=== PATIENT | male | born 1960 | race Caucasian/White ===

== ENCOUNTER 2017-07-14 16:48 | Emergency (ER) | payer SELFPAY ==
[~2017-07-14] VITALS: Ht 182.9 cm; Wt 99.0 kg
[~2017-07-14 16:48] MED LIST: IBUP-1277 PO
[2017-07-14 16:55] VITALS: TEMP 36.8; Ht 182.9 cm; Wt 99.0 kg
[2017-07-14] MEDS ORDERED: XYLOCAINE 1%/SOD BICARB 20 ML VIAL INFIL ONE (17:07)
--- NOTE | 2017-07-14 17:47 | DIAGNOSTIC IMAGING REPORT ---
MANDIBLE MIN 4 VIEWS ROUTINE CLINICAL HISTORY: L JAW PAIN AFTER A FALL trauma. Pain. COMPARISON STUDY: None FINDINGS: Soft tissue disruption and/or laceration over the left mandibular angle. No evidence for acute bony pathology. Cortical margins are intact. The mandibular condyles show no evidence for disruption. IMPRESSION: 1. Soft tissue disruption over the left mandibular angle. 2. No acute bony abnormality. The above report was generated using voice recognition software. It may contain grammatical, syntax or spelling errors. Electronically signed by: Tristan To M.D. 07/14/2017 5:46 PM Dictated Date/Time: 07/14/2017 5:45 PM
[2017-07-14] MEDS ORDERED: ASPI325T45 PO (18:05)
[2017-07-14] MEDS ORDERED: CEPHALEXIN 500MG HOME PACK 1 EA BTL PO ONE (18:45)
[2017-07-14] MEDS ORDERED: CEPH500C2 PO (18:47)
--- NOTE | 2017-07-14 18:48 | EMERGENCY ROOM VISIT NOTE ---
ED Visit Note First contact with patient: 17:00 CHIEF COMPLAINT: Chin laceration 16 hours ago HISTORY OF PRESENT INJURY: Patient is a 56-year-old white male who presents emergency department for evaluation of a chin laceration. He states that around midnight or 1:00 in the morning, he was carrying some items and tripped going up a set of concrete steps. He was unable to brace himself and struck his chin on the step, causing the laceration described below. He had some bleeding from the left nostril which stopped shortly thereafter. He notes that he cracked to right sided teeth as well. He complains of pain in the left side of the jaw and some swelling in the left cheek in addition to the laceration. He cleansed the area with soap and water. He applied bandages, then states that he had to work today and now presents the emergency department for wound repair. He believes that his tetanus is current. He denies any headache, lightheadedness or dizziness. No neck pain. REVIEW OF SYSTEMS: Review of systems as per HPI. All other systems reviewed were negative. 10 systems reviewed. PMH: Electronic medical records are reviewed and summarized as above/below. See Problem List. Patient believes his last tetanus was in 2008. SOCIAL HISTORY: Patient lives at home with his family. PHYSICAL EXAM: Vital Signs: Reviewed Nurse's notes. CONSTITUTIONAL: Patient is a well-appearing 56-year-old white male who is awake and alert and in no acute distress. HEENT: Head - normocephalic and atraumatic. Pupils are equal, round, and reactive to light. Extraocular eye muscles are intact and sclera are anicteric. Ears - bilaterally patent canals with no evidence of hemotympanum. Nose - moist nasal mucosa without evidence of trauma or discharge. Mouth - moist buccal mucosa with no signs of malocclusion. Face: The patient has a 7 cm laceration on the underside of the chin, with mild soft tissue swelling. Scant oozing is noted. He has some swelling in the left mid mandible region and is tender there and not the left TMJ. The jaw does open and close fully. No other facial bony tenderness is appreciated. Neck: The neck is supple and there is no pain to palpation over the posterior cervical spine and no obvious step-offs or deformities. There is no JVD or tracheal deviation. EMERGENCY DEPARTMENT COURSE: Mandible x-rays were obtained and negative for acute bony injury. Delayed primary closure was discussed with the patient and given the size and location of the laceration it was felt necessary to perform repair. The affected area was cleaned thoroughly with Betadine and saline. 1% plain buffered lidocaine was used as a local anesthetic. The laceration was explored to its base. There was no foreign body in the wound. The subcutaneous layer was closed with several 5-0 Vicryl sutures, then the skin was closed with 13, 6- 0 nylon sutures. Wound care measures were discussed. The patient will be placed on Keflex given the delayed primary closure, and he was counseled at length regarding the signs and symptoms of infection for which he should seek immediate medical attention. Differential diagnoses include laceration, facial bony fracture, cervical strain, C-spine injury, among others. Medication reconciliation: I attest that I have personally reviewed the patient' s current medication list. Blood pressure screening: Patient was found to have a slightly elevated blood pressure due to circumstances. I do not believe that the patient requires hypertension monitoring. MANDIBLE MIN 4 VIEWS ROUTINE CLINICAL HISTORY: L JAW PAIN AFTER A FALL trauma. Pain. COMPARISON STUDY: None FINDINGS: Soft tissue disruption and/or laceration over the left mandibular angle. No evidence for acute bony pathology. Cortical margins are intact. The mandibular condyles show no evidence for disruption. IMPRESSION: 1. Soft tissue disruption over the left mandibular angle. 2. No acute bony abnormality. Current/Historical Medications Scheduled Cephalexin Monohydrate (Keflex), 500 MG PO TID Ibuprofen (Advil), 600 MG PO Q6HR PRN Scheduled PRN Aspirin (Aspirin), 975 MG PO Q8 PRN for Pain Allergies Coded Allergies: No Known Allergies (Unverified , 07/14/17) Vital Signs Date Time Temp Pulse Resp B/P (MAP) Pulse Ox O2 Delivery O2 Flow Rate FiO2 07/14/17 19:00 89 18 161/90 95 Room Air 07/14/17 16:55 36.8 88 18 164/128 96 Room Air Medications Administered Medications (Trade) Dose Ordered Sig/Saeid Route Start Time Stop Time Status Last Admin Dose Admin Cephalexin Monohydrate (Keflex 500MG Home Pack) 1 homepack NOW ONCE PO 07/14/17 18:45 07/14/17 18:46 DC 07/14/17 18:45 1 HOMEPACK Departure Information Impression Primary Impression: Chin laceration Prescriptions Cephalexin Monohydrate (KEFLEX) 500 Mg Cap 500 MG PO TID, #21 CAP Prov: Anna Ybarra PA 07/14/17 Referrals No Doctor, Assigned (PCP) Patient Instructions My [facility] Additional Instructions Keep wound clean and dry. Do not allow any crusting or dried blood to accumulate on sutures. Clean the area with mild soap and water. Use an antibiotic ointment for 3-4 days, then let wound dry. Suture removal in 7 days. Return sooner for any signs of infection (increasing redness, swelling, drainage). Ice and elevate for swelling and pain. Ibuprofen 600 mg and Tylenol 1000 mg every 6 hrs for pain. Cephalexin(Keflex) 500mg: Take one pill 3 times daily for 7 days to prevent infection. All antibiotics can cause diarrhea. If this occurs and you feel worse or it does not resolve in 1-2 days follow up with your doctor or return to the Emergency Department as this could be signs of serious underlying problems. Any medication can cause an allergic reaction, stop the pills immediately and return to the ER for rash, hives, breathing difficulties, or swelling. Problem Qualifiers Primary Impression: Chin laceration Encounter type: initial encounter Qualified Codes: S01.81XA - Laceration without foreign body of other part of head, initial encounter
[2017-07-14 19:00] VITALS: BP 161/90; PULSE 89; O2SAT 95
== END 2017-07-14 19:05 | disposition home or self-care (01) ==
LOC: C.EDB 16:49 → C.EDD 19:05
DX: S01.81XA Laceration without foreign body of other part of head, initial encounter (principal); W19.XXXA Unspecified fall, initial encounter